=== PATIENT | male | born 1985 | race African-American/Black ===

== ENCOUNTER 2018-06-17 10:42 | Emergency (ER) | payer MEDICAID ==
[~2018-06-17] VITALS: Ht 165.1 cm; Wt 77.0 kg
[2018-06-17 10:46] VITALS: BP 126/94
== END 2018-06-17 14:02 | disposition home or self-care (01) ==
LOC: ER 10:42
DX: J34.0 Abscess, furuncle and carbuncle of nose (principal)
CPT/HCPCS: 99283